=== PATIENT | male | born 1945 | race Caucasian/White ===

== ENCOUNTER → 2018-08-17 | Outpatient (CLI) | payer MEDICARE ==
[~2018-08-17] MED LIST: ASPI81CH PO; ATOR10; ATOR10 PO; CENTRUM SILVER1 EAC2 PO; LISHYD1012; LISI20 PO; Medi-Meclizine25 MG PO; PROM25 PO; VERTICALM25 MG PO
== END | disposition home or self-care (01) ==
LOC: PLD 14:29 → LAB SHORT 14:29
DX: D48.5 Neoplasm of uncertain behavior of skin (principal); L57.0 Actinic keratosis; L82.1 Other seborrheic keratosis
CPT/HCPCS: 88305

== ENCOUNTER → 2018-12-15 | Outpatient (CLI) | payer MEDICARE ==
[~2018-12-15] MED LIST changes: -ASPI81CH PO; +Aspirin EC81 MG PO; +BENZ100A PO; -LISI20 PO; +Prilosec Otc20 MG PO; +Prinivil10 MG PO
== END | disposition home or self-care (01) ==
LOC: LAB SHORT 11:49 → PLD 11:49
DX: D48.5 Neoplasm of uncertain behavior of skin (principal)
CPT/HCPCS: 88305

== ENCOUNTER → 2018-12-21 | Outpatient (CLI) | payer MEDICARE | LOC: PLD 14:55 → LAB SHORT 14:55 | DX: C44.629 Squamous cell carcinoma of skin of left upper limb, including shoulder (principal) | CPT/HCPCS: 88305 ==

== ENCOUNTER → 2019-08-24 | Outpatient (CLI) | payer MEDICARE | END | disposition home or self-care (01) | LOC: PLD 09:00 → LAB SHORT 09:00 | DX: C44.42 Squamous cell carcinoma of skin of scalp and neck (principal) | CPT/HCPCS: 88305 ==

== ENCOUNTER → 2019-11-29 | Outpatient (CLI) | payer MEDICARE | END | disposition home or self-care (01) | LOC: PLD 13:30 → LAB SHORT 13:30 | DX: D48.5 Neoplasm of uncertain behavior of skin (principal) | CPT/HCPCS: 88305 ==

== ENCOUNTER → 2020-03-02 | Outpatient (CLI) | payer MEDICARE | END | disposition home or self-care (01) | LOC: PLD 15:25 → LAB SHORT 15:25 | DX: D48.5 Neoplasm of uncertain behavior of skin (principal) | CPT/HCPCS: 88305 ==

== ENCOUNTER 2020-03-22 12:15 | Emergency (ER) | payer MEDICARE, OTHER ==
[~2020-03-22] VITALS: Ht 172.7 cm; Wt 69.0 kg
[~2020-03-22 12:15] MED LIST changes: -ATOR10 PO
[2020-03-22] MEDS ORDERED: TESTOSTERONE75 G1 TOP (12:45)
[2020-03-22] MEDS ORDERED: AUGMENTIN 875-1 EACH PO (12:45)
[2020-03-22] MEDS ORDERED: LISI20 PO (12:46)
[2020-03-22 12:55] LABS: BASOPHILS ABSOLUTE AUTO 0.03 K/mm3 (0.00-0.23); BASOPHILS PERCENT AUTO 0 % (0-2); EOSINOPHILS PERCENT AUTO 0 % (0-6); Hematocrit 29.7 % (37.0-53.0); Hemoglobin 9.9 g/dL (13.5-17.5); IMMATURE GRAN ABSOLUTE AUTO 0.09 K/mm3 (0.00-0.10); IMMATURE GRAN PERCENT AUTO 1 % (0-1); LYMPHOCYTES ABSOLUTE AUTO 1.51 K/mm3 (0.84-5.20); LYMPHOCYTES PERCENT AUTO 12 % (21-46); MONOCYTES ABSOLUTE AUTO 2.07 K/mm3 (0.16-1.47); MONOCYTES PERCENT AUTO 16 % (4-13); Mean Corpuscular HGB 29.6 pg (26.0-34.0); Mean Corpuscular HGB Conc 33.3 g/dL (31.5-36.5); Mean Corpuscular Volume 89 fL (80-100); Mean Platelet Volume 10.4 fL (9.1-12.4); NEUTROPHILS ABSOLUTE AUTO 9.02 K/mm3 (1.96-9.15); NEUTROPHILS PERCENT AUTO 71 % (41-73); Platelet Count 244 K/mm3 (150-400); RDW Coefficient Variation 14.6 % (11.7-14.2); RDW Standard Deviation 46.9 fL (35.1-46.3); Red Blood Cell Count 3.34 M/mm3 (4.30-5.90); White Blood Cell Count 12.72 K/mm3 (4.00-11.30)
[2020-03-22 13:14] LABS: Alanine Aminotransfer (ALT/SGP 83 U/L (12-78); Albumin, Blood 2.2 g/dL (3.4-5.0); Albumin/Globulin Ratio 0.5 (0.8-1.8); Alk Phos 213 U/L (50-136); Anion Gap 11 mmol/L (6-16); Aspartate Aminotrans (AST/SGOT 148 U/L (12-37); Bilirubin, Total 1.3 mg/dL (0.1-1.0); Blood Urea Nitrogen 33 mg/dL (8-24); Bun/Creatinine Ratio 26.2 (12.0-20.0); CO2, Blood 18 mmol/L (21-32); Calcium, Blood 8.3 mg/dL (8.5-10.1); Chloride, Blood 101 mmol/L (98-108); Creatinine, Blood 1.26 mg/dL (0.60-1.20); Globulin, Blood 4.7 g/dL (2.2-4.0); Glomerular Filtration Rate 59 (60-); Glucose, Blood 103 mg/dL (70-99); Potassium, Blood 4.7 mmol/L (3.5-5.5); Sodium, Blood 130 mmol/L (136-145); Total Protein, Blood 6.9 g/dL (6.4-8.2); Troponin I <0.015 ng/mL (0.000-0.040)
[2020-03-22] MEDS ORDERED: Ativan1 MG PO (14:38)
== END 2020-03-22 14:58 | disposition home or self-care (01) ==
LOC: ER 12:15
PROVIDERS: Physician Assistant
DX: F41.9 Anxiety disorder, unspecified (principal); D64.9 Anemia, unspecified; Z79.82 Long term (current) use of aspirin; Z79.899 Other long term (current) drug therapy; Z87.891 Personal history of nicotine dependence
CPT/HCPCS: 36415; 71046; 80053; 83880; 84484; 85025; 93005; 93010; 99285-25

== ENCOUNTER 2020-03-26 14:34 | Inpatient (IN) | payer MEDICARE, OTHER ==
[~2020-03-26] VITALS: Ht 172.7 cm; Wt 74.5 kg
[~2020-03-26 14:34] MED LIST changes: +AUGMENTIN 875-1 EACH PO; +Ativan1 MG PO; +LISI20 PO; +TESTOSTERONE75 G1 TOP
[2020-03-26 15:07] LABS: BASOPHILS ABSOLUTE AUTO 0.06 K/mm3 (0.00-0.23); BASOPHILS PERCENT AUTO 0 % (0-2); EOSINOPHILS PERCENT AUTO 0 % (0-6); Hematocrit 37.4 % (37.0-53.0); Hemoglobin 12.8 g/dL (13.5-17.5); IMMATURE GRAN ABSOLUTE AUTO 0.37 K/mm3 (0.00-0.10); IMMATURE GRAN PERCENT AUTO 2 % (0-1); LYMPHOCYTES ABSOLUTE AUTO 1.22 K/mm3 (0.84-5.20); LYMPHOCYTES PERCENT AUTO 5 % (21-46); MONOCYTES ABSOLUTE AUTO 2.23 K/mm3 (0.16-1.47); MONOCYTES PERCENT AUTO 9 % (4-13); Mean Corpuscular HGB 29.6 pg (26.0-34.0); Mean Corpuscular HGB Conc 34.2 g/dL (31.5-36.5); Mean Corpuscular Volume 87 fL (80-100); Mean Platelet Volume 11.5 fL (9.1-12.4); NEUTROPHILS ABSOLUTE AUTO 21.05 K/mm3 (1.96-9.15); NEUTROPHILS PERCENT AUTO 85 % (41-73); NRBC ABSOLUTE 0.27 K/mm3 (0.00-0.02); NRBC Auto 1.1 /100 WBC (0.0-0.2); Platelet Count 390 K/mm3 (150-400); RDW Coefficient Variation 15.6 % (11.7-14.2); RDW Standard Deviation 47.5 fL (35.1-46.3); Red Blood Cell Count 4.32 M/mm3 (4.30-5.90); White Blood Cell Count 24.93 K/mm3 (4.00-11.30)
[2020-03-26 15:20] LABS: Magnesium, Blood 3.7 mg/dL (1.6-2.4)
[2020-03-26 15:22] LABS: Albumin/Globulin Ratio 0.4 (0.8-1.8); Bilirubin, Total 2.8 mg/dL (0.1-1.0); Bun/Creatinine Ratio 21.4 (12.0-20.0); Calcium, Blood 8.8 mg/dL (8.5-10.1); Creatinine, Blood 4.58 mg/dL (0.60-1.20); Globulin, Blood 4.8 g/dL (2.2-4.0); Potassium, Blood 5.5 mmol/L (3.5-5.5); Total Protein, Blood 6.8 g/dL (6.4-8.2)
[2020-03-26] MEDS ORDERED: Ativan1 MG PO (15:33)
[2020-03-26] MEDS ORDERED: ATOR10 PO (15:34)
[2020-03-26 16:44] LABS: Source, Urine Clean Catch
[2020-03-26 16:58] LABS: Appearance, Urine Hazy (Clear); Blood, Urine 3+ (Neg); Color, Urine Amber (P-Yellow); Glucose Qualitative, Urine 1+ (Neg); Ketones, Urine 1+ (Neg); Leukocyte Esterase, Urine 1+ (Neg); Nitrite, Urine Pos (Neg); Protein, Urine 3+ (Neg); Specific Gravity, Urine 1.025 (1.003-1.022); Urobilinogen, Urine 3+ (Normal)
[2020-03-26 17:14] LABS: Bilirubin, Urine 2+ (Neg)
[2020-03-26 17:15] LABS: Bacteria Few /hpf; Squamous Epithelial Cells Rare /hpf (Few); White Blood Cells, Urine 0-2 /hpf (0-5)
--- NOTE | 2020-03-26 18:42 | NUR ---
ADMIT PT ARRIVED TO ICU 10 AT 1825. PT ALERT BUT DROWSY, SPEECH IS SLURRED AND QUIET. PT ANSWERING QUESTIONS APPROPRIATELY. ST IN THE 120S. LEVOPHED INFUSING AT 5MCG/MIN, SBP 120S, LEVOPHED TURNED DOWN TO 3 AND THEN DOWN TO 1 AFTER REPEAT SBP STILL ABOVE 100. AL WITH DARK YELLOW URINE, ONLY ABOUT 30ML IN THE BAG. PT'S AT THE BEDSIDE. CONTINUING TO MONITOR.
[2020-03-26] MEDS ORDERED: ALBU90OI INH (19:40)
[2020-03-26 21:34] LABS: U Amphetamine Screen Not Detected; U Barbituate Screen Not Detected; U Benzodiazapine Screen DETECTED; U Buprenorphine Screen Not Detected; U Cannabinoids Screen DETECTED; U Cocaine Screen Not Detected; U Methadone Screen Not Detected; U Methamphetamine Screen Not Detected; U Opiates Screen Not Detected; U Oxycodone Screen Not Detected; U Phencyclidine Screen Not Detected; U Propoxyphene Screen Not Detected
[2020-03-27 03:46] LABS: BASOPHILS ABSOLUTE AUTO 0.02 K/mm3 (0.00-0.23); BASOPHILS PERCENT AUTO 0 % (0-2); EOSINOPHILS PERCENT AUTO 0 % (0-6); Hematocrit 22.9 % (37.0-53.0); Hemoglobin 7.7 g/dL (13.5-17.5); IMMATURE GRAN ABSOLUTE AUTO 0.28 K/mm3 (0.00-0.10); IMMATURE GRAN PERCENT AUTO 2 % (0-1); LYMPHOCYTES ABSOLUTE AUTO 0.83 K/mm3 (0.84-5.20); LYMPHOCYTES PERCENT AUTO 5 % (21-46); MONOCYTES PERCENT AUTO 8 % (4-13); Mean Corpuscular HGB 29.8 pg (26.0-34.0); Mean Corpuscular HGB Conc 33.6 g/dL (31.5-36.5); Mean Corpuscular Volume 89 fL (80-100); NEUTROPHILS ABSOLUTE AUTO 14.31 K/mm3 (1.96-9.15); NEUTROPHILS PERCENT AUTO 85 % (41-73); NRBC ABSOLUTE 0.35 K/mm3 (0.00-0.02); NRBC Auto 2.1 /100 WBC (0.0-0.2); Platelet Count 246 K/mm3 (150-400); RDW Coefficient Variation 15.9 % (11.7-14.2); RDW Standard Deviation 49.7 fL (35.1-46.3); Red Blood Cell Count 2.58 M/mm3 (4.30-5.90); White Blood Cell Count 16.74 K/mm3 (4.00-11.30)
[2020-03-27 04:07] LABS: Alanine Aminotransfer (ALT/SGP 40 U/L (12-78); Albumin, Blood 2.4 g/dL (3.4-5.0); Albumin/Globulin Ratio 0.9 (0.8-1.8); Alk Phos 132 U/L (50-136); Anion Gap 14 mmol/L (6-16); Aspartate Aminotrans (AST/SGOT 136 U/L (12-37); Bilirubin, Direct 2.3 mg/dL (0.0-0.3); Bilirubin, Indirect 0.4 mg/dL (0.1-0.7); Bilirubin, Total 2.7 mg/dL (0.1-1.0); Blood Urea Nitrogen 93 mg/dL (8-24); Bun/Creatinine Ratio 24.6 (12.0-20.0); CO2, Blood 15 mmol/L (21-32); Calcium, Blood 6.9 mg/dL (8.5-10.1); Chloride, Blood 110 mmol/L (98-108); Creatinine, Blood 3.78 mg/dL (0.60-1.20); Globulin, Blood 2.7 g/dL (2.2-4.0); Glomerular Filtration Rate 17 (60-); Glucose, Blood 90 mg/dL (70-99); Phosphorus, Blood 6.2 mg/dL (2.5-4.9); Potassium, Blood 4.5 mmol/L (3.5-5.5); Sodium, Blood 139 mmol/L (136-145); Total Protein, Blood 5.1 g/dL (6.4-8.2); Vancomycin, Random 9.4 ug/mL
--- NOTE | 2020-03-27 04:54 | NUR ---
SHIFT SUMMARY AROUND 02:00 THIS AM PT. BECAME PROGRESSIVELY MORE CONFUSED, ALMOST DELIOUS. PT. WOULD BE PULLING AT AL CATHETER, PICKING AT IVs WITH HIS EYES CLOSED, SAID "HALINA," HE WOULD OPEN EYES, ASK "WHAT'S GOING ON?" AND WOULD HAVE NO IDEA HE WAS JUST PULLING ON LINES. AT 02:45 THIS AM PLACED ON RESTRAITNS SO PT. WOULD NOT HARM SELF, PT. OK WITH THIS DECISION. BP HAS MAINTAINED WITH A MEAN BP GREATER THAN 60 THROUGH NIGHT, HAVE NOT RESTARTED LEVOPHED AFTER TURNING OFF @ 23:30 LAST NIGHT. OTHER THAN SOME CONFUSION/DISORIENTATION DURING SLEEP, NO ACUTE CHANGES OVERNIGHT. ASSESSMENT IS CHARTED. NO C/O PAIN. VSS. WILL CONTINUE TO MONITOR.
--- NOTE | 2020-03-27 12:16 | NUR ---
UPDATE PT SLEEPING, WOKEN FOR REASSESSMENT, DENIES C/O. SPO2 >90% ON 1L/NC, WILL TITRATE OFF ABLE. MAP 67, LEVO REMAINS OFF. HR 90'S, HAS BECOME IRREGULAR, IS NOW CLEAR AFLUTTER. PT DENIES CP AND SOB.
[2020-03-27 16:23] LABS: Hematocrit 25.6 % (37.0-53.0); Hemoglobin 8.4 g/dL (13.5-17.5)
--- NOTE | 2020-03-27 18:53 | NUR ---
END OF SHIFT PT HAD UNEVENTFUL AFTERNOON, SLEPT MOST OF THE DAY BUT WAKES EASILY, REMAINS CONFUSED BUT COOPERATIVE. IN TO VISIT FOR MAJORITY OF AFTERNOON, ATTEMPTED TO ASSIST PT TO EAT BUT APPETITE IS POOR, PT DENIES NAUSEA OR ABD PAIN. BP LOW, MAP >60, HR 90-110 AFLUTTER, PT DENIES CP/PRESSURE. O2 REMAINS AT 3L/NC FOR DESAT WHILE SLEEPING, LS CTA. NO BM THIS SHIFT. JAUNDICE NOTED IN BILATERAL EYES THIS EVENING. NON PRODUCTIVE COUGH HAS BEGAN PRODUCING SMALL AMOUNTS OF WHITE PHLEGM. REPORT TO ONCOMING SHIFT.
[2020-03-28 01:05] LABS: Creatinine, Blood 3.17 mg/dL (0.60-1.20); Vancomycin, Trough 14.5 ug/mL (5.0-10.0)
--- NOTE | 2020-03-28 06:13 | NUR ---
SHIFT SUMMARY: PATIENT RESTLESS, TURNING HIMSELF SIDE TO SIDE IN THE BED MOST OF THE NIGHT. PATIENT ORIENTED, STATES HE JUST HAS TROUBLE SLEEPING SOMETIMES. OXYGEN AT 4L/MIN VIA NASAL CANNULA WITH SATS >95%; PORTABLE CXR DONE THIS AM. IV WITH LR INFUSING AT 200CC/HR VIA PIV TO LEFT ARM. PATIENT REMAINS OFF LEVOPHED WITH MAP >60. AL CATH. PATENT DRAINING ADEQUATE AMOUNTS CLEAR, YELLOW URINE. CONTINUE CURRENT POC. AWAITING DAY SHIFT RN FOR HANDOFF.
[2020-03-28 06:17] LABS: Hematocrit 26.2 % (37.0-53.0); Hemoglobin 8.6 g/dL (13.5-17.5); Mean Corpuscular HGB 30.2 pg (26.0-34.0); Mean Corpuscular HGB Conc 32.8 g/dL (31.5-36.5); Mean Corpuscular Volume 92 fL (80-100); Mean Platelet Volume 11.7 fL (9.1-12.4); NRBC ABSOLUTE 1.47 K/mm3 (0.00-0.02); NRBC Auto 10.2 /100 WBC (0.0-0.2); Platelet Count 139 K/mm3 (150-400); RDW Coefficient Variation 17.2 % (11.7-14.2); RDW Standard Deviation 53.6 fL (35.1-46.3); Red Blood Cell Count 2.85 M/mm3 (4.30-5.90); White Blood Cell Count 14.42 K/mm3 (4.00-11.30)
[2020-03-28 06:36] LABS: Albumin, Blood 2.1 g/dL (3.4-5.0); Anion Gap 11 mmol/L (6-16); Blood Urea Nitrogen 82 mg/dL (8-24); Bun/Creatinine Ratio 28.2 (12.0-20.0); CO2, Blood 15 mmol/L (21-32); Calcium, Blood 7.8 mg/dL (8.5-10.1); Chloride, Blood 116 mmol/L (98-108); Creatinine, Blood 2.91 mg/dL (0.60-1.20); Glomerular Filtration Rate 22 (60-); Glucose, Blood 66 mg/dL (70-99); Magnesium, Blood 2.9 mg/dL (1.6-2.4); Phosphorus, Blood 4.2 mg/dL (2.5-4.9); Potassium, Blood 4.4 mmol/L (3.5-5.5); Sodium, Blood 142 mmol/L (136-145)
[2020-03-28 06:56] LABS: BAND PERCENT MAN 1 % (0-8); BASOPHILS PERCENT MAN 0 % (0-2); EOSINOPHILS ABSOLUTE MAN 0.28 K/mm3 (0.00-0.68); EOSINOPHILS PERCENT MAN 2 % (0-6); LYMPHOCYTES ABSOLUTE MAN 0.86 K/mm3 (0.84-5.20); LYMPHOCYTES PERCENT MAN 6 % (21-46); MONOCYTES ABSOLUTE MAN 1.44 K/mm3 (0.16-1.47); MONOCYTES PERCENT MAN 10 % (4-13); MYELOCYTE ABSOLUTE MAN 0.14 K/mm3 (0.00-0.00); MYELOCYTE PERCENT MAN 1 % (0-0); NEUTROPHILS ABSOLUTE MAN 11.68 K/mm3 (1.96-9.15); SEG NEUTROPHILS PERCENT MAN 80 % (41-73); TOTAL CELLS COUNTED 100
--- NOTE | 2020-03-28 11:56 | NUR ---
REASSESSMENT PT HAS BEEN RESTING IN BED THROUGHOUT THE MORNING. HE IS ALERT AND ORIENTED, BUT SLEEPS UNLESS HE IS BEING INTERACTED WITH. HE IS WEAK, BUT STILL ABLE TO TURN HIMSELF FROM SIDE TO SIDE AND REPOSITIONS HIMSELF. LUNGS ARE CLEAR, BUT DIM IN THE BASES. HE HAS STARTED COUGHING MORE THIS MORNING AND IS STARTING TO PRODUCE A SMALL AMT OF PHLEGM, BUT HAS JUST SWALLOWED THE PHLEGM. PROVIDED PT WITH SPECIMEN CUP IF HE PRODUCES MORE. REMAINS IN AFLUTTER WITH RATE RIGHT AROUND 120, SBP STAYING ABOUT 140. PT TRIED TO DRINK SOME FLUIDS AT BREAKFAST, BUT DIDN'T LIKE THEM AND DOESN'T WANT TO TRY ANYTHING FOR LUNCH. IV FLUIDS STILL INFUSING BUT RATE REDUCED BY DR. SEGOVIA. AL DRAINING YELLOW URINE WITH SEDIMENT IN IT. DR. SEGOVIA GAVE OK FOR PT TO BE PCU STATUS. PT'S IS AT THE BEDSIDE AND WAS UPDATED BY DR. SEGOVIA AND NURSING STAFF.
[2020-03-28 16:36] LABS: International Normalized Ratio 1.39; Prothrombin Time Results 14.6 Sec (9.7-11.5)
--- NOTE | 2020-03-28 17:33 | NUR ---
SHIFT SUMMARY PT HAS REMAINED ALERT AND ORIENTED TODAY. SPENT THE DAY RESTING IN BED WITH HIS AT THE BEDSIDE FOR THE MAJORITY OF THE DAY. REMAINS IN AFLUTTER WITH RATE IN THE 120S, BP STABLE. LUNGS CLEAR, DIM IN THE BASES. ON 2L/NC, DYSPNEIC WITH ACTIVITY. PT TOLERATING MINIMAL AMTS OF CLEAR LIQUIDS DUE TO POOR APPETITE. AL WITH DARK YELLOW URINE WITH LOTS OF SEDIMENT. OVER 1L OUT TODAY. STILL WAITING ON PCU BED TO BE AVAILABLE. CONTINUE TO MONITOR.
--- NOTE | 2020-03-28 19:13 | NUR ---
ASSUMED CARE: A&O. FEBRILE WITH TEMP 99.4. IN A FLUTTER. HR 120S. LUNG SOUNDS CLEAR. DOES HAVE A WHEEZY PRODUCTIVE COUGH. ON 2-3L NC. CLEAR LIQUID DIET BUT HAS A POOR APPETITE. AL IN PLACE DRAINING DARK URINE WITH SEDIMENT. 18G IVS IN BILAT ACS. LR INFUSING AT 100MLS/HR. MEPILEX ON COCCYX. HGB SLIGHTLY LOW. ORDERS ARE IN TO COLLECT OCCULT STOOL. WAS AT BEDSIDE DURING SHIFT CHANGE. WILL CONTINUE TO MONITOR
[2020-03-29 00:48] LABS: Vancomycin, Trough 15.5 ug/mL (5.0-10.0)
--- NOTE | 2020-03-29 05:14 | NUR ---
SHIFT SUMMARY: PT SLEPT ON AND OFF T/O NIGHT. MILDLY CONFUSED. FEBRILE-99.1. IN A FLUTTER. HR IN THE 110S, SBP 100-120S. LUNG SOUNDS MORE CLEAR. SPO2 >90% ON 2-3LNC. PT DID FREQUENTLY TAKE NC OFF. SATS NEVER DROPPED BELOW 90%. SOME EPISODES OF APNEA T/O NIGHT. PT'S BREATHING APPEARS LABORED AND HE EASILY GETS SOB. STRONG PRODUCTIVE COUGH. IS ABLE TO CLEAR OWN SECRETIONS. AL IN PLACE. URINE IS DARK AND HAS MOD AMT OF SEDIMENT. PT HAD A COUPLE BM SMEARS TH/O NIGHT. NO FULL BMS. 18G IN LAC. LR AT 100MLS/HR. MEPILEX ON COCCYX IS C/D/I. PT IS ABLE TO REPOSITION SELF IN BED. WILL PASS REPORT TO ONCOMING SHIFT
[2020-03-29 06:24] LABS: Hematocrit 25.1 % (37.0-53.0); Hemoglobin 8.3 g/dL (13.5-17.5); Mean Corpuscular HGB Conc 33.1 g/dL (31.5-36.5); Mean Corpuscular Volume 91 fL (80-100); Mean Platelet Volume 12.5 fL (9.1-12.4); NRBC Auto 24.4 /100 WBC (0.0-0.2); Platelet Count 106 K/mm3 (150-400); RDW Coefficient Variation 17.9 % (11.7-14.2); RDW Standard Deviation 51.6 fL (35.1-46.3); Red Blood Cell Count 2.77 M/mm3 (4.30-5.90); White Blood Cell Count 14.73 K/mm3 (4.00-11.30)
[2020-03-29 06:35] LABS: Alanine Aminotransfer (ALT/SGP 52 U/L (12-78); Albumin/Globulin Ratio 0.7 (0.8-1.8); Alk Phos 320 U/L (50-136); Anion Gap 10 mmol/L (6-16); Aspartate Aminotrans (AST/SGOT 195 U/L (12-37); Bilirubin, Total 9.2 mg/dL (0.1-1.0); Blood Urea Nitrogen 70 mg/dL (8-24); Bun/Creatinine Ratio 30.3 (12.0-20.0); CO2, Blood 17 mmol/L (21-32); Calcium, Blood 8.7 mg/dL (8.5-10.1); Chloride, Blood 114 mmol/L (98-108); Creatinine, Blood 2.31 mg/dL (0.60-1.20); Globulin, Blood 2.9 g/dL (2.2-4.0); Glomerular Filtration Rate 29 (60-); Glucose, Blood 72 mg/dL (70-99); Magnesium, Blood 2.7 mg/dL (1.6-2.4); Phosphorus, Blood 3.9 mg/dL (2.5-4.9); Potassium, Blood 4.4 mmol/L (3.5-5.5); Sodium, Blood 141 mmol/L (136-145); Total Protein, Blood 4.9 g/dL (6.4-8.2)
[2020-03-29 07:05] LABS: International Normalized Ratio 1.65; Prothrombin Time Results 17.2 Sec (9.7-11.5)
--- NOTE | 2020-03-29 07:26 | NUR ---
PT VERY RESTLESS IN BED THIS AM, SOMEWHAT DISHEVELED, LEADS OFF, SHEETS TANGLED. PT RESP 30'S W DRY NON-PRODUCTIVE HACKING COUGH. LUNGS CLEAR, SATS 95% ON 2L O2. PT SHIVERING. TEMP 99 VIA TEMP AL PROBE. PT STATED HE NEEDED TO VOID; PT HAS CATHETER; PT FOREGETFUL BUT ORIENTED X3. URINE DARK CHEMO W SEDIMENT. PT IN AFLUTTER, HYPOTENSIVE W MAP>65.
[2020-03-29 07:37] LABS: BAND PERCENT MAN 2 % (0-8); BASOPHILS PERCENT MAN 0 % (0-2); EOSINOPHILS PERCENT MAN 0 % (0-6); LYMPHOCYTES ABSOLUTE MAN 1.17 K/mm3 (0.84-5.20); LYMPHOCYTES PERCENT MAN 8 % (21-46); METAMYELOCYTE ABSOLUTE MAN 0.14 K/mm3 (0.00-0.00); METAMYELOCYTE PERCENT MAN 1 % (0-0); MONOCYTES ABSOLUTE MAN 1.32 K/mm3 (0.16-1.47); MONOCYTES PERCENT MAN 9 % (4-13); MYELOCYTE ABSOLUTE MAN 0.44 K/mm3 (0.00-0.00); MYELOCYTE PERCENT MAN 3 % (0-0); NEUTROPHILS ABSOLUTE MAN 11.63 K/mm3 (1.96-9.15); SEG NEUTROPHILS PERCENT MAN 77 % (41-73); TOTAL CELLS COUNTED 100
--- NOTE | 2020-03-29 08:42 | NUR ---
DR MERIDA IN TO SEE PT; UPDATE GIVEN. OT AT BEDSIDE NOW
--- NOTE | 2020-03-29 09:20 | NUR ---
PT DANGLED ON SIDE OF BED W OT; PT SOB W RESP HIGH 30'S, LOW 40'S. BP ELEVATED. DR SEGOVIA AT BEDSIDE. PT ASSISTED BACK TO FOWLERS POSITION IN BED AND FELL ASLEEP ALMOST IMMEDIATELY. LOPRESSOR PO GIVEN; PT ABLE TO SWALLOW SAFELY. CPAP ORDERED FOR NIGHT AND PRN. PT DOES HAVE APNEIC PERIODS DURING SLEEP.
--- NOTE | 2020-03-29 10:06 | NUR ---
PT PLACED ON CPAP 20/10 W 2L BLEED-IN. PT SLEEPING SOUNDLY, DOES AWAKEN TO VOICE. PT ALREADY LOOKS IMPROVED FROM EARLIER. PT'S AT BEDSIDE AND GIVEN UPDATE.
--- NOTE | 2020-03-29 11:11 | NUR ---
LR CHANGED TO TKO, LASIX 20MG IVP GIVEN PER DR SEGOVIA. PT TOLERATING CPAP, RESP MUCH LESS LABORED. STOOL SAMPLE SENT FOR GUAIAC. RAMSAY TO BE PLACED FOR TF/NUTRITION.
[2020-03-29 13:35] LABS: Stool Occult Blood Guaiac 1 Neg (Neg)
--- NOTE | 2020-03-29 13:52 | NUR ---
DOBBHOFF PLACED TO RIGHT NARE (NUMBED W LIDO JELLY). TUBE PLACED W/O DIFFICULTY; AWAITING CHEST XRAY.
--- NOTE | 2020-03-29 14:16 | NUR ---
DOBBHOFF PLACEMENT GOOD PER DR FOSTER. WIRE REMOVED, LINE SECURED. PT TO BE TRANSFERED TO PCU 14.
--- NOTE | 2020-03-29 15:50 | NUR ---
ATTEMPTED TO CHANGE DAMARIS AT 1500 IT WAS SATURATED, AREA REMAINED SOFT W/O HEMATOMA. DAMARIS CAREFULLY PEELED UP, ARTERY STARTED BLEEDING OUTWARD. IMMEDIATE MANUAL PRESSURE HELD WHICH WAS EFFECTIVE IN STOPPING BLLED. DR ONEIL CALLED AND NOTIFIED. PRESSURE HELD FOR 45MIN. AREA REMAINS SOFT. CLEAR OCCLUSIVE DRSG PLACED ALONG W FEMSTOP; STRAPS TIGHTENED; BALLOON NOT INFLATED. PT HAS GOOD WAVEFORM; SAT MONITOR TO RIGHT TOE.
--- NOTE | 2020-03-29 18:30 | NUR ---
TRANSFER NOTE RECEIVED REPORT FROM RN IN ICU; PT TO ROOM VIA BED AT 1504; 4 PERSON TRANSFER ASSIST WITH SLIDER SHEET. PT AND SPOUSE ORIENTED TO ROOM AND CALL LIGHT. PT ALERT; ORIENTED TO PERSON, PLACE AND TIME; CALM AND COOPERATIVE WITH CARE. PT DENIES PAIN, SOB, CHEST PAIN AND DIZZINESS. PT SPOUSE REPORTS BLOATING AFTER STARTING TUBE FEEDING; STOPPED FEEDING; RESIDUAL NOTED AT 120; WILL HOLD FEEDING AND RESTART AFTER REST. BP ON LOW SIDE; MAP >60; HR ELEVARED A FLUTTER 120-130; DR MERIDA NOTIIFED; NO NEW ORDERS. HOB ELEVATED AT 30 DEGREE; BED IN LOW, CALL LIGHT WITHIN REACH. WILL CONTINUE TO MONITOR UNITL REPORT GIVEN TO ONCOMING RN.
--- NOTE | 2020-03-29 20:51 | NUR ---
CALLED RICHA ALVAREZ TO REPORT PATIENT PULLED DOBHOFF; CONFUSION IN INCREASING; ORDERS FOR SOFT WRIST RESTRAINTS.
--- NOTE | 2020-03-29 21:57 | NUR ---
ASSUMED CARE OF PATIENT AT APPROXIMATELY 1910 FROM KASI Webb RN. PATIENT RESPONDS TO VERBAL STIMULUS; BEDSIDE DURING BEDSIDE REPORT; REPORTS TO STAFF THAT PATIENT NOT NORMALLY CONFUSED BUT HAS BEEN SINCE HE HAS BEEN SICK. PATIENT WEAK; Q2H TURNS; BEDREST. PATIENT HAS DOBHOFF FOR TUBE FEEDING; PULLED OUT 1/2 WAY THROUGH SHIFT AND REPLACED BY PIPING SUPERVISOR DAN M.; XRAY PENDING; SOFT BILATERAL WRIST RESTAINTS IN PLACE. AFLUTTER ON TELE W/ A RATE IN 130'S; DAYSHIFT WAS NOTIFIED; BP SOFT; OXYGEN SATURATION ABOVE 90% ON ROOM AIR. PIV S/L. URINARY CATH DRAINING CHEMO COLORED URINE. PATIENT CURRENTLY RESTING IN BED; CALL LIGHT IN REACH; BED IN LOWEST POSISTION; BED ALARM ON; WILL CONTINUE TO MONITOR AND ASSESS UNTIL END OF SHIFT.
[2020-03-30 04:41] LABS: Alanine Aminotransfer (ALT/SGP 48 U/L (12-78); Albumin/Globulin Ratio 0.6 (0.8-1.8); Alk Phos 300 U/L (50-136); Anion Gap 16 mmol/L (6-16); Aspartate Aminotrans (AST/SGOT 209 U/L (12-37); Bilirubin, Total 12.5 mg/dL (0.1-1.0); Blood Urea Nitrogen 79 mg/dL (8-24); Bun/Creatinine Ratio 33.3 (12.0-20.0); CO2, Blood 13 mmol/L (21-32); Calcium, Blood 8.4 mg/dL (8.5-10.1); Chloride, Blood 113 mmol/L (98-108); Creatinine, Blood 2.37 mg/dL (0.60-1.20); Globulin, Blood 3.4 g/dL (2.2-4.0); Glomerular Filtration Rate 28 (60-); Glucose, Blood 80 mg/dL (70-99); Magnesium, Blood 2.6 mg/dL (1.6-2.4); Phosphorus, Blood 5.3 mg/dL (2.5-4.9); Potassium, Blood 5.1 mmol/L (3.5-5.5); Sodium, Blood 142 mmol/L (136-145); Total Protein, Blood 5.4 g/dL (6.4-8.2); Vancomycin, Random 18.4 ug/mL
--- NOTE | 2020-03-30 06:14 | NUR ---
PATIENT CONFUSED T/O THE NIGHT PULLING ON DOBHOFF MULTIPLE TIMES, PULLING ON CATHETER, PULLING GOWN DOWN AND TELE LEADS OFF. PATIENT REPORT IT IS NOT HIS INTENTION TO PULL THINGS. PATIENT SLEPT MAYBE FOUR HOURS TOTAL. HEART RATE TRENDED DOWN TO 110'S AT ONE POINT. CURRENTLY 120'S. WILL CONTINUE TO MONITOR AND ASSESS UNTIL END OF SHIFT.
[2020-03-30 06:21] LABS: Prothrombin Time Results 53.9 Sec (9.7-11.5)
[2020-03-30 06:24] LABS: International Normalized Ratio 5.55
[2020-03-30 06:45] LABS: Hematocrit 34.7 % (37.0-53.0); Hemoglobin 11.3 g/dL (13.5-17.5); Mean Corpuscular HGB Conc 32.6 g/dL (31.5-36.5); Mean Corpuscular Volume 92 fL (80-100); NRBC ABSOLUTE 6.53 K/mm3 (0.00-0.02); NRBC Auto 43.3 /100 WBC (0.0-0.2); Platelet Count 87 K/mm3 (150-400); RDW Coefficient Variation 20.9 % (11.7-14.2); RDW Standard Deviation 53.2 fL (35.1-46.3); Red Blood Cell Count 3.77 M/mm3 (4.30-5.90); White Blood Cell Count 15.07 K/mm3 (4.00-11.30)
[2020-03-30 06:51] LABS: Mean Platelet Volume 13.4 fL (9.1-12.4)
[2020-03-30 07:28] LABS: BAND PERCENT MAN 1 % (0-8); BASOPHILS PERCENT MAN 0 % (0-2); EOSINOPHILS PERCENT MAN 0 % (0-6); LYMPHOCYTES ABSOLUTE MAN 0.75 K/mm3 (0.84-5.20); LYMPHOCYTES PERCENT MAN 5 % (21-46); MONOCYTES ABSOLUTE MAN 1.65 K/mm3 (0.16-1.47); MONOCYTES PERCENT MAN 11 % (4-13); MYELOCYTE ABSOLUTE MAN 0.15 K/mm3 (0.00-0.00); MYELOCYTE PERCENT MAN 1 % (0-0); SEG NEUTROPHILS PERCENT MAN 82 % (41-73); TOTAL CELLS COUNTED 100
--- NOTE | 2020-03-30 10:03 | NUR ---
Assisted pt twice to bedpan for bowel movement.
--- NOTE | 2020-03-30 12:50 | NUR ---
Call to imaging department to request a read of the xray from last night 2100 to confirm dobhoff placement. Call received back, stating results. Dobhoff was flushed with 30 cc water at this time, no resistance felt. PT is awake and talking to me and to his , Megan, who is at the bedside. Tube feeding was resumed, per prior orders.
--- NOTE | 2020-03-30 14:10 | NUR ---
Oskar has been alert during care, and at times spontaneously awakening, but napping frequently so far this shift. He is oriented to person, able to state his birthday, and that he is in " a civilian hospital". He cannot specify where that he is, and told me that today's date is September 07 of the year 2022. I reminded him that his birthday was yesterday, but this didn't seem to jog his memory. He recognized his , and has been making requests regarding his care and comfort, and able to respond to simple directions, but at times struggles to follow more complex instructions. Very dyspneic with minimal activity, such as repositioning in the bed with maximum assistance, but requesting OOB to the bedside commode, which he would likely not tolerate at all. spO2 maintaining above 90% while on no supplemental oxgyen. Heart rate has mostly been 110-128, at times 90 bpm atrial fibrillation by telemetry monitoring. CPAP in use when he is sleeping. Poor appetite, taking only small amounts of clear liquids by mouth, but tube feeding was resumed early this afternoon after Chest xray was reported by the radiologist by phone to have correct dobhoff placement. His has been at the bedside for most of the day. Ontiveros catheter draining rehana clear urine. He has had one small loose brown bowel movement today, and was continent using the bedpan.
--- NOTE | 2020-03-30 18:53 | NUR ---
CPAP in use while pt sleeping today while his was here, present in room; during those times the wrist restraints were temporarily released while she was present to monitor and protect the pt from pulling his lines.
--- NOTE | 2020-03-30 22:00 | NUR ---
ASSUMED CARE OF PATIENT AT APPROXIMATELY [address] RN. PATIENT RESPONDS TO VERBAL STIMULUS; CONFUSED; PULLING AT DOBHOFF, AL AND GOWN; SOFT WRIST RESTAINTS IN PLACE. PATIENT WEAK; Q2H TURNS; BEDREST. NO S/S OF PAIN. PATIENT HAS DOBHOFF FOR TUBE FEEDING; PATIENT REPORTS STOMACH FEELS FUL AND BLOATED; FEEDING HELD FOR ONE HOUR; UNABLE TO TITRATE UP TO GOAL. AFLUTTER ON TELE W/ A RATE IN 110'S; OXYGEN SATURATION ABOVE 90% ON ROOM AIR. PIV S/L. URINARY CATH DRAINING CHEMO COLORED URINE. PATIENT CURRENTLY RESTING IN BED; CALL LIGHT IN REACH; BED IN LOWEST POSISTION; BED ALARM ON; WILL CONTINUE TO MONITOR AND ASSESS UNTIL END OF SHIFT.
--- NOTE | 2020-03-30 22:20 | NUR ---
ASSUMED CARE OF PATIENT AT APPROXIMATELY [address] RN. PATIENT RESPONDS TO VERBAL STIMULUS; CONFUSED; PULLING AT DOBHOFF, AL AND GOWN; SOFT WRIST RESTAINTS IN PLACE. PATIENT WEAK; Q2H TURNS; BEDREST. NO S/S OF PAIN. PATIENT HAS DOBHOFF FOR TUBE FEEDING; HIGH RESIDUAL; FEEDING HELD FOR ONE HOUR; UNABLE TO TITRATE UP TO GOAL. AFLUTTER ON TELE W/ A RATE IN 110'S; OXYGEN SATURATION ABOVE 90% ON ROOM AIR. PIV S/L. URINARY CATH DRAINING CHEMO COLORED URINE. PATIENT CURRENTLY RESTING IN BED; CALL LIGHT IN REACH; BED IN LOWEST POSISTION; BED ALARM ON; WILL CONTINUE TO MONITOR AND ASSESS UNTIL END OF SHIFT.
--- NOTE | 2020-03-31 04:12 | NUR ---
PATIENT SPIT OUT BLOODY SPUTUM; VSS; HAND ENDBAND CUTTER NOTIFIED.
[2020-03-31 04:43] LABS: Magnesium, Blood 2.9 mg/dL (1.6-2.4); Phosphorus, Blood 4.7 mg/dL (2.5-4.9); Vancomycin, Random 22.1 ug/mL
[2020-03-31 04:45] LABS: International Normalized Ratio No Calc; Prothrombin Time Results >90.0 Sec (9.7-11.5)
--- NOTE | 2020-03-31 05:01 | NUR ---
CRITICALLY HIGH PT ABOVE 90 AND INR NO CALC; DR. DUMONT NOTIFIED OF LAB RESULTS AND QUARTER SIZE BLOODY SPUTUM ABOUT AN HOUR BEFORE LABS; WILL CONTINUE TO MONITOR; WARFARIN BEING HELD.
--- NOTE | 2020-03-31 06:11 | NUR ---
PATIENT COUGHED UP MORE BLOODYS SPUTUM. PATIENT SLEPT MOST OF SHIFT. HEART RATE 110-120'S; BLOOD PRESSURE IMPROVED. TUBE FEEDING CONTINUES. PATIENT TAKES CPAP MASK OF MULTPLE TIMES; DOESNT TOLERATE; APNEIC WHEN SLEEPING. WILL CONTINUE TO MONITOR AND ASSESS UNTIL END OF SHIFT.
--- NOTE | 2020-03-31 10:02 | NUR ---
and pharmacist Wesly Carbajal here. UPdated on pt condition and Dr. Clifton's plan to test for Lyme's disease. It was suggested to check the PTT as well as liver function due to the incalculable INR.
--- NOTE | 2020-03-31 10:26 | NUR ---
Megan at bedside, tearful. States that the doctor thinks that "it doesn't look good". Declines support from palliative care/spiritual care at this time. States that family members will be coming to say their goodbyes to the pt. STates that he is a good man and has lived a good life. The pt has been sleeping when left undisturbed. He was able to take medications by mouth this morning, but has otherwise been uninterested in oral intake. His tube feeding is running via Dobhoff per orders and rate increased at this time from 25cc/hour to 35 cc/hour. He has not been communicative this morning, only occasionally attempting to speak when spoken to but it is difficult to understand. Occasional dry cough noted. Noted dried blood around his teeth and on tongue/palate. Oral care was not attempted as noc shift RN reported that the pt did not tolerate it well and it caused increased bleeding from the oral cavity. At this time there is no actie bleeding noted. His lips and around his mouth are being wipes gently with soft cloth as needed. He is lying on his right side, propped with pillows. ramos catheter draining rehana urine. No bowel movements this morning. Skin is slightly jaundices in color. Breathing is even, unlabored. He is not wearing the CPAP at this time. It was placed on the pt at time of bedside report at 0700, but at 0830 the pt's Megan requested that he be given a break from it as it seemed to be making him very uncomfortable, and he was attempting to pull it off. At this time, he is not pulling at any lines/tubes/wires. Megan was encouraged to keep staff informed of any needs or concers that she might have.
[2020-03-31 11:12] LABS: Albumin, Blood 1.9 g/dL (3.4-5.0); Albumin/Globulin Ratio 0.6 (0.8-1.8); Bilirubin, Indirect 2.6 mg/dL (0.1-0.7); Bilirubin, Total 14.6 mg/dL (0.1-1.0); Globulin, Blood 3.1 g/dL (2.2-4.0)
--- NOTE | 2020-03-31 11:40 | NUR ---
Met with Megan and Oskar this morning. Oskar slept through most of the visit, however he did awaken a little and speak a few words to Megan. He is pulling at tubes and lines and wants his gown removed and to be repositioned. Assisted bedside nurse with repositioning to his left side, which is the side he prefers to sleep on at home per Megan. Emotional support given to Megan. She is tearful and is able to tell this instructional writer that the doctors have given him a poor prognosis. She states Oskar has sisters, one who lives in [place] is planning to come tomorrow. Megan states "I don't know how much time he has left." Allowed her to talk about what the doctors have told her. Offered to call someone for her as a support person. She reports that her mother was here earlier today and will plan to return later. She declines any drinks or a snack at this time. She reports that she was able to get some sleep last night. She reports that the jaundice that Oskar has is new in the past couple of days. He is more sleepy and appears to be confused at times. Gently broached the subject of code status with her as something to think about. She reports that she and Oskar have had discussions on code status in the past but they never talked about how sick he needed to be to draw the line to consider a DNR status. Informed her that there are some good resource booklets on making hard decisions should she desire that information. Briefly discussed the support care he is being given at this time vs a comfort care approach. Again, did not push the issue as Megan is tearful and distraught over his illness. Will plan to check in with Megan this afternoon to see how she is doing and if she has any questions. Encouraged self care. Emotional support given. PC will continue to follow.
--- NOTE | 2020-03-31 12:06 | NUR ---
alerted by the PCT that the pt's spo2 was dropping, and continuous oxymetry monitor alarming. In room noted that spo2 was 87%. CPAP placed on pt, with 3 l/min o2 bleed in , and spo2 improved to 91%. The pt is lying on his left side, with his at the bedside. She is tearful, and asked her own mother to leave the room; states she just wants to be alone right now.
--- NOTE | 2020-03-31 12:46 | NUR ---
Pt's heart rate is increasing, now in the 120-130s. Spo2 93% on room air. requested that cpap stay off since it is uncomfortable for the patient, and he is attempting to remove it, and since the "goal is to keep him comfortable" she would prefer to keep it off. Noted now some active bleeding from the pt's mouth. Family members are at the bedside, and states that they are here to "say good bye" to Oskar. Her understanding is that "we don't know how much time he has left". Call to Dr. Clifton to update on pt's condition. New order received for Vit K as well as FFP at this time. Metoprolol was held at noon due to pt's blood pressure being outside or presribed parameters for administration. Respiratory rate also noted increased, up to 32 breaths/minute.
[2020-03-31 13:22] LABS: Hematocrit 32.9 % (37.0-53.0); Hemoglobin 10.7 g/dL (13.5-17.5)
--- NOTE | 2020-03-31 13:53 | NUR ---
Dr. Clifton and Geena Bryd with Palliative care here, discussing pt's condition and ongoing treatment plan. Oral care was given at the time of oral vitamin K adminsitration. PT spat out large blood clot which was under his tongue. Attempted to do some very gentle oral care, but minimally successful due to pt's discomfort and refusal to continue. Megan at the bedside. Waiting for FFP slip to administer.
--- NOTE | 2020-03-31 14:22 | NUR ---
Met with pt's , Megan, again per request of nursing. Spoke with both nursing and Dr. Clifton prior to entering pt's room. Pt has had some bleeding from his mouth and he had elevated HR and lower BP since the last time I visited with Megan earlier today. An US of the abd was just completed and labs drawn. Megan and her mother are present at the bedside. Oskar remains restless at times, pulling covers off and on. Family reports he appears to be having some visual hallucinations trying to grab at things in the air. His sister is planning to visit tomorrow. Nursing reports pt has had several family members coming in today "to say goodbye." Gently broached the code status discussion again with Megan. Explained that DNR does not mean that he won't get the treatments and testing that he is currently getting. Those treatments and tests could be continued to look for a cause if his DNR status changed. Explained that full code would be those same testing and treatments with the possibility of a return to ICU if he continues to worsen. Megan verbalized understanding and states that she needs to think about this decision overnight and that she cannot make it today. Megan reports pt's sister, Little, is coming tomorrow and she tells Oskar in my presence that he needs "To hang on and wait for Little to get here." Explained that staff will respect her wishes and continue with a full code status at this time. Provided a copy of [employer] to her. Nursing, Dr. Clifton and Isabella in CM updated. PC will plan to visit with Megan and Oskar again tomorrow morning or sooner if needed.
--- NOTE | 2020-03-31 14:47 | NUR ---
remains at bedside. Noted very small amount of dark red blood drooling from pt's mouth, mostly dried on the right side. Not sure if there is an active small bleed, or if his saliva is moistening the dried blood present in his mouth. He is lying on his right side, respirations are regular, slightly labored at times. He awakens easily to stimuli.
--- NOTE | 2020-03-31 17:53 | NUR ---
This afternoon, blood pressure improved and heart rate has remained less than 130. He has been less responsive and much less interactive than he was yesterday. Shifting his position often and spontaneously in the bed. Able to do oral care 3 times, but only very gently and not thoroughly due to the pt's discomfort and wanting to avoid preciptating any bleeding of his mouth. Appears to be tolerating the tube feeding, passing gas and one very small smear of stool this afternoon. His Megan has remained at the bedside and will continue to do so. She states that the pt's sister will be arriving tomorrow from [place], [place].
--- NOTE | 2020-03-31 18:53 | NUR ---
2NS UNIT OF FFP COMPLETED. vITAL SIGNS STABLE, PT APPEARS TO BE SLEEPING, WITHOUT THE CPAP. AT BEDSIDE.
--- NOTE | 2020-03-31 21:57 | NUR ---
IN ROOM VERY ATTENTIVE TO PATIENT, CALMLY TALKING TO HIM AND COMFORTING. PATIENT WAKES WITH VERBAL STIMULI, ANDSWERS WITH ONE TO TWO WORD ANSWERS, FOLLOW SIMPLE COMMANDS. HE DENIES PAIN. HE IS BREATHING AT 32-36 BREATHS PER MINUTE, HE BREATHS RAPIDLY FOR 20-30SECONDS AND THE IS SNORING WITH SLOWER RESP, THIS IS CYCLICAL AND REGULAR. HIS LUNGS ARE DECREASED T/O WITH BRONCHIAL RHONCHI. F/C DRAINING DARK YELLOW URINE, PATIENT HAS BEEN PULLING AT THE CATHETER, ARRANGED THE SHEETS TO KEEP HIS HANDS AWAY FROM THE CATH. NO RESTRAINTS ARE USED. DOBHOFF WITH TF AT 35CC/HOUR. ABDOMEN WITH MODERATE DESTENTION WITH HYPOACTIVE BT. HAVING BROWN LIQUID STOOL. CALL LIGHT IN REACH OF PATIENT AND .
[2020-04-01 03:42] LABS: BASOPHILS ABSOLUTE AUTO 0.08 K/mm3 (0.00-0.23); BASOPHILS PERCENT AUTO 1 % (0-2); EOSINOPHILS ABSOLUTE AUTO 0.01 K/mm3 (0.00-0.68); EOSINOPHILS PERCENT AUTO 0 % (0-6); Hemoglobin 9.2 g/dL (13.5-17.5); Mean Corpuscular HGB 30.7 pg (26.0-34.0); Mean Corpuscular HGB Conc 32.9 g/dL (31.5-36.5); Mean Corpuscular Volume 93 fL (80-100); NRBC ABSOLUTE 12.22 K/mm3 (0.00-0.02); NRBC Auto 69.2 /100 WBC (0.0-0.2); Platelet Count 54 K/mm3 (150-400); RDW Standard Deviation 51.8 fL (35.1-46.3); White Blood Cell Count 17.67 K/mm3 (4.00-11.30)
[2020-04-01 03:47] LABS: IMMATURE GRAN ABSOLUTE AUTO 1.33 K/mm3 (0.00-0.10); IMMATURE GRAN PERCENT AUTO 8 % (0-1); LYMPHOCYTES ABSOLUTE AUTO 1.87 K/mm3 (0.84-5.20); LYMPHOCYTES PERCENT AUTO 11 % (21-46); MONOCYTES ABSOLUTE AUTO 2.38 K/mm3 (0.16-1.47); MONOCYTES PERCENT AUTO 14 % (4-13); NEUTROPHILS PERCENT AUTO 68 % (41-73)
[2020-04-01 03:53] LABS: International Normalized Ratio 3.08; Prothrombin Time Results 30.9 Sec (9.7-11.5)
[2020-04-01 04:02] LABS: Alanine Aminotransfer (ALT/SGP 89 U/L (12-78); Albumin, Blood 2.2 g/dL (3.4-5.0); Albumin/Globulin Ratio 0.7 (0.8-1.8); Alk Phos 213 U/L (50-136); Anion Gap 9 mmol/L (6-16); Aspartate Aminotrans (AST/SGOT 419 U/L (12-37); Blood Urea Nitrogen 101 mg/dL (8-24); Bun/Creatinine Ratio 49.8 (12.0-20.0); CO2, Blood 20 mmol/L (21-32); Chloride, Blood 118 mmol/L (98-108); Creatinine, Blood 2.03 mg/dL (0.60-1.20); Globulin, Blood 3.1 g/dL (2.2-4.0); Glomerular Filtration Rate 34 (60-); Glucose, Blood 145 mg/dL (70-99); Phosphorus, Blood 3.4 mg/dL (2.5-4.9); Potassium, Blood 4.3 mmol/L (3.5-5.5); Sodium, Blood 147 mmol/L (136-145); Total Protein, Blood 5.3 g/dL (6.4-8.2); Vancomycin, Random 17.3 ug/mL
[2020-04-01 04:05] LABS: BAND PERCENT MAN 5 % (0-8); BASOPHILS PERCENT MAN 0 % (0-2); EOSINOPHILS PERCENT MAN 0 % (0-6); LYMPHOCYTES ABSOLUTE MAN 1.41 K/mm3 (0.84-5.20); LYMPHOCYTES PERCENT MAN 8 % (21-46); METAMYELOCYTE ABSOLUTE MAN 0.88 K/mm3 (0.00-0.00); METAMYELOCYTE PERCENT MAN 5 % (0-0); MONOCYTES ABSOLUTE MAN 2.65 K/mm3 (0.16-1.47); MONOCYTES PERCENT MAN 15 % (4-13); MYELOCYTE ABSOLUTE MAN 0.17 K/mm3 (0.00-0.00); MYELOCYTE PERCENT MAN 1 % (0-0); NEUTROPHILS ABSOLUTE MAN 12.54 K/mm3 (1.96-9.15); SEG NEUTROPHILS PERCENT MAN 66 % (41-73); TOTAL CELLS COUNTED 100
--- NOTE | 2020-04-01 06:59 | NUR ---
PATIENT IS BREATHING MORE LABORED THAN AT THE BEGINNING OF THE SHIFT. DOES NOT WANT THE PATIENT ON BIPAP, SHE STATES THAT SHE DOESNT THINK IT MAKE HIM FEEL BETTER, BECAUSE HE FIGHTS IT. HE HAS BEEN REPOSITIONED EVERY 2 HOURS FOR COMFORT AND HIGH RISK. CALL LIGHT IN POSITION.
[2020-04-01 09:11] LABS: HBSAG SCREEN Negative (Negative); HEP A AB, IGM Negative (Negative); HEP B CORE AB, IGM Negative (Negative); HEP C VIRUS AB 0.1 (0.0-0.9)
--- NOTE | 2020-04-01 11:53 | NUR ---
Family requested oral care as the pt was "trying to spit out a blood clot". With use of flashlight, dried crusty blood seen on the palate, tongue, and all teeth. Oral care was provided, and a large clot was removed by suction with use of mouth care kit. Some slow, small active bleeding was noted in the mouth, so oral care was limited due to the pt's resistance to the care, presumably due to discomfort.
--- NOTE | 2020-04-01 17:02 | NUR ---
HR PT'S HR 144. DISCUSSED W/DR PINEDA AND DR HOWELL. ORDERS PENDING FROM DR HOWELL.
--- NOTE | 2020-04-01 18:41 | NUR ---
SUMMARY PT'S HR REMAINED TACHY AT 138-142 T/O SHIFT. ORDERS OBTAINED FROM DR HOWELL TO INCREASE METOPROLOL, WHICH WAS ADMINISTERED. PT HAD DIFFICULTY SWALLOWING PILLS, INSTEAD CRUSHED AND ADMINISTERED THROUGH DOBHOFF. HAS DRIED BLOOD IN MOUTH, GENTLE ORAL CARE WAS PERFORMED BY ROTARY DERRICK OPERATOR. PT RESTLESS AT TIMES. MOVES INDEPENDENTLY IN BED AND STAFF REPOSITIONED T/O DAY ALSO. SPOUSE AT BEDSIDE, SPOKE TO DR HOWELL ABOUT OUTLOOK. STATES WANTS TO AWAIT ARRIVAL OF PT'S CHILDREN FRIDAY MORNING BEFORE MAKING ANY DECISIONS ABOUT CHANGING CODE STATUS.
[2020-04-02 04:27] LABS: Hematocrit 28.9 % (37.0-53.0); Hemoglobin 9.2 g/dL (13.5-17.5); Mean Corpuscular HGB Conc 31.8 g/dL (31.5-36.5); Mean Corpuscular Volume 97 fL (80-100); NRBC ABSOLUTE 13.04 K/mm3 (0.00-0.02); NRBC Auto 73.7 /100 WBC (0.0-0.2); RDW Coefficient Variation 26.5 % (11.7-14.2); RDW Standard Deviation 58.3 fL (35.1-46.3); Red Blood Cell Count 2.97 M/mm3 (4.30-5.90); White Blood Cell Count 17.69 K/mm3 (4.00-11.30)
[2020-04-02 04:37] LABS: Platelet Count 38 K/mm3 (150-400)
[2020-04-02 04:40] LABS: International Normalized Ratio 2.92; Prothrombin Time Results 29.4 Sec (9.7-11.5)
[2020-04-02 04:57] LABS: Alanine Aminotransfer (ALT/SGP 68 U/L (12-78); Albumin/Globulin Ratio 0.6 (0.8-1.8); Alk Phos 202 U/L (50-136); Anion Gap 11 mmol/L (6-16); Aspartate Aminotrans (AST/SGOT 336 U/L (12-37); Bilirubin, Total 23.3 mg/dL (0.1-1.0); Blood Urea Nitrogen 93 mg/dL (8-24); Bun/Creatinine Ratio 58.1 (12.0-20.0); CO2, Blood 19 mmol/L (21-32); Calcium, Blood 7.9 mg/dL (8.5-10.1); Chloride, Blood 122 mmol/L (98-108); Globulin, Blood 3.1 g/dL (2.2-4.0); Glomerular Filtration Rate 45 (60-); Glucose, Blood 149 mg/dL (70-99); Potassium, Blood 4.4 mmol/L (3.5-5.5); Sodium, Blood 152 mmol/L (136-145); Total Protein, Blood 5.1 g/dL (6.4-8.2); Vancomycin, Random 17.1 ug/mL
[2020-04-02 05:26] LABS: BAND PERCENT MAN 4 % (0-8); BASOPHILS PERCENT MAN 0 % (0-2); EOSINOPHILS PERCENT MAN 0 % (0-6); LYMPHOCYTES ABSOLUTE MAN 1.23 K/mm3 (0.84-5.20); LYMPHOCYTES PERCENT MAN 7 % (21-46); METAMYELOCYTE ABSOLUTE MAN 0.88 K/mm3 (0.00-0.00); METAMYELOCYTE PERCENT MAN 5 % (0-0); MONOCYTES ABSOLUTE MAN 1.76 K/mm3 (0.16-1.47); MONOCYTES PERCENT MAN 10 % (4-13); NEUTROPHILS ABSOLUTE MAN 13.79 K/mm3 (1.96-9.15); SEG NEUTROPHILS PERCENT MAN 74 % (41-73); TOTAL CELLS COUNTED 100
--- NOTE | 2020-04-02 06:40 | NUR ---
SHIFT SUMMARY PT RESTLESS T/O NIGHT. PT'S HR REMAINED IN 130'S-140'S. METOPROLOL GIVEN ORDERED. PT REPOSITIONED Q 2 HRS AND NEEDED FOR COMFORT. AL DRAINING TO GRAVITY. PT CONFUSED AND LETHARGIC AT TIMES. PT REPORTS NO CP OR PRESSURE. BP STABLE. OXYGEN SATURATION OVER 90% ON RA. PT HAS CONTINUOUS TPN THROUGH DOBHOFF AT 40. WILL CONTINUE TO MONITOR UNTIL REPORT GIVEN TO DAYSHIFT RN.
--- NOTE | 2020-04-02 08:10 | NUR ---
Met with Megan in pt's room this morning. She reports that pt's children are flying in from [place] and [place] late tonight and will be coming to visit pt. She states she is going to defer the code status decision to his children. She is hopeful that his children can meet with MD tomorrow and get their questions answered before making a decision. Oskar remains very jaundiced at this time. He opened his eyes during my visit but did not verbally respond to my questions. PC will continue to follow and will plan to meet with Megan, Oskar and his children once they arrive. Emotional support given to Megan. She appears quite fatigued. She has been here caring for Oskar while he has been here. Encouraged self care.
[2020-04-02 08:46] LABS: Albumin/Globulin Ratio 0.6 (0.8-1.8); Bilirubin, Direct 19.4 mg/dL (0.0-0.3); Bilirubin, Indirect 3.6 mg/dL (0.1-0.7); Globulin, Blood 3.1 g/dL (2.2-4.0); Total Protein, Blood 5.1 g/dL (6.4-8.2)
--- NOTE | 2020-04-02 09:00 | NUR ---
ASSUMED CARE OF PT AT 0700. REPORT FROM TAMMIE/FLORENTINO LAWSON. PT RESTING IN BED. SO AT BEDSIDE. PT LAYING c EYES CLOSED. MOANS TO VERBAL STIMULI. FOLLOWS SIMPLE DIRECTIONS. DOES NOT ANSWER QUESTIONS. PT JAUNDICE, FRAGILE, ECCHYOTIC SKIN. ABD FIRM, ROUND, DISTENDED. HYPOACTIVE BT. DOBHOFF TO RIGHT NARE. PIVOT 1.5 INFUSING AT GOAL OF 40 ML/HR c 130 ML FLUSHES q4 HOURS. LUNGS DIMINISHED IN BASES. PT TACHYPENIC IRREGULAR RESP. HR 140'S. PT ABLE TO MOVE ALL EXTREMITIES. Q2 HOUR TURNS. AL PATENT AND DRAINING ORANGE CLOUDY URINE TO GRAVITY. DRIED BLOOD IN MOUTH. ORAL CARE PROVIDED. WILL CONTINUE TO MONITOR.
--- NOTE | 2020-04-02 18:34 | NUR ---
SHIFT SUMMARY PT CONTINUES TO BE RESPONSIVE TO VERBAL STIMULI, FOLLOW SIMPLE DIRECTIONS. MOANS. OCCASIONALLY ANSWERS YES/NO QUESTIONS. TACHYPNIC. HR REMAINS 130-140'S, AFLUTTER, NO CHANGE AFTER METOPROLOL DOSE. PIVOT 1.5 AT GOAL OF 40 ML/HR c FLUSHES INCREASED TO 240 ML q4. 1/2 NS STARTED AT 100 ML/HR. PT CONTINUES TO HAVE THICK BLOODY CLOTS TO MOUTH. ORAL CARE PROVIDED MULTIPLE TIMES. GI CONSULTED TODAY. LIVER U/S ORDERED AND LACTULOSE. PT c 2 SMALL LIQUID STOOLS. SENT TO LAB FOR GUIAC. PT'S ADULT CHILDREN WILL BE ARRIVING TONIGHT AND DISCUSSIONS REGARDING CODE STATUS TO BE HAD. WILL CONTINUE TO MONITOR UNTIL REPORT TO ONCOMING NURSE.
[2020-04-03 04:06] LABS: Hematocrit 27.2 % (37.0-53.0); Hemoglobin 8.7 g/dL (13.5-17.5); Mean Corpuscular HGB 31.5 pg (26.0-34.0); Mean Corpuscular Volume 99 fL (80-100); NRBC ABSOLUTE 16.31 K/mm3 (0.00-0.02); RDW Coefficient Variation 28.2 % (11.7-14.2); RDW Standard Deviation 56.4 fL (35.1-46.3); Red Blood Cell Count 2.76 M/mm3 (4.30-5.90); White Blood Cell Count 17.54 K/mm3 (4.00-11.30)
[2020-04-03 04:13] LABS: Platelet Count 33 K/mm3 (150-400)
[2020-04-03 04:26] LABS: International Normalized Ratio 5.96; Prothrombin Time Results 57.6 Sec (9.7-11.5)
--- NOTE | 2020-04-03 04:51 | NUR ---
CRITICAL LAB VALUES NOTFIED OF PLT COUNT AT 33, PROTIME AT 57.6 AND INR OF 5.9 AT 0425. PHYSICIAN NOTIFIED AT 0432. NO PHYSICIAN ORDERS WERE GIVEN PERTAINING TO THESE LAB RESULTS.
[2020-04-03 04:57] LABS: Alanine Aminotransfer (ALT/SGP 59 U/L (12-78); Albumin, Blood 1.8 g/dL (3.4-5.0); Albumin/Globulin Ratio 0.6 (0.8-1.8); Alk Phos 186 U/L (50-136); Anion Gap 12 mmol/L (6-16); Aspartate Aminotrans (AST/SGOT 292 U/L (12-37); Bilirubin, Total 25.9 mg/dL (0.1-1.0); Blood Urea Nitrogen 105 mg/dL (8-24); Bun/Creatinine Ratio 63.3 (12.0-20.0); CO2, Blood 16 mmol/L (21-32); Chloride, Blood 125 mmol/L (98-108); Creatinine, Blood 1.66 mg/dL (0.60-1.20); Globulin, Blood 3.1 g/dL (2.2-4.0); Glomerular Filtration Rate 43 (60-); Glucose, Blood 143 mg/dL (70-99); Potassium, Blood 4.4 mmol/L (3.5-5.5); Sodium, Blood 153 mmol/L (136-145); Total Protein, Blood 4.9 g/dL (6.4-8.2); Vancomycin, Random 19.2 ug/mL
--- NOTE | 2020-04-03 05:38 | NUR ---
SHIFT SUMMARY PT RESTLESS T/O SHIFT. PT LETHARGIC AND MOANS IN RESPONSE TO VERBAL STIMULI. PT'S AT BEDSIDE. PT'S HR REMAINS IN THE 130'S TO 140'S. MEDICATIONS GIVEN PER EMAR. PT'S BP STABLE. OXYGEN SATURATION REMAINED ABOVE 92% ON RA. DOBHOFF RUNNING AT 40 WITH TPN CONTINUOUSLY. AL PATENT AND TO GRAVITY DRAIN. PT REPOSITIONED Q 2 HRS AND NEEDED FOR COMFORT. FAMILY PLAN TO MEET WITH PALLIATIVE CARE RN THIS AM. WILL CONTINUE TO MONITOR UNTIL REPORT GIVEN TO DAYSHIFT RN.
[2020-04-03 06:15] LABS: BAND PERCENT MAN 7 % (0-8); BASOPHILS PERCENT MAN 0 % (0-2); BLASTS PERCENT MAN 1 % (0-0); EOSINOPHILS PERCENT MAN 0 % (0-6); LYMPHOCYTES ABSOLUTE MAN 0.17 K/mm3 (0.84-5.20); LYMPHOCYTES PERCENT MAN 1 % (21-46); METAMYELOCYTE ABSOLUTE MAN 0.35 K/mm3 (0.00-0.00); METAMYELOCYTE PERCENT MAN 2 % (0-0); MONOCYTES ABSOLUTE MAN 1.57 K/mm3 (0.16-1.47); MONOCYTES PERCENT MAN 9 % (4-13); MYELOCYTE ABSOLUTE MAN 0.87 K/mm3 (0.00-0.00); MYELOCYTE PERCENT MAN 5 % (0-0); NEUTROPHILS ABSOLUTE MAN 14.03 K/mm3 (1.96-9.15); PROMYELOCYTE ABSOLUTE MAN 0.35 K/mm3 (0.00-0.00); PROMYELOCYTE PERCENT MAN 2 % (0-0); SEG NEUTROPHILS PERCENT MAN 73 % (41-73); TOTAL CELLS COUNTED 100
--- NOTE | 2020-04-03 08:02 | NUR ---
ASSUMED CARE AT 0700, REPORT FROM TAMMIE. LAYING SUPINE IN BED IN LOW FOWLERS. MOVES ALL FOUR EXTREMETIES, AWAKES TO VERBAL STIMULI, NON VERBAL AT THIS TIME. TPN INFUSING AT 40ML/HR. 0.45% NS INFUSING AT 50ML/HR. AL IN PLACE DRAINING ORANGE COLORED URINE TO GRAVITY. SKIN AND SCLERA JAUNDICE, DOBHOFF IN PLACE, RA AT THIS TIME WITH INCREASED RR OF 38. INTERMITANT TACHYPNIA DURING THE NIGHT PER NIGHT NOC RN. AWAITING FAMILY ATTIVAL AT 0800 FOR CONFERENCE WITH PALLATIVE CARE TO DETERMINE FURTHER COARSE OF TREATMENT. SPOUSE AT BEDSIDE, WILL CONTINUE TO MONITOR.
--- NOTE | 2020-04-03 09:45 | NUR ---
Met with pt's son, Aquilino, dtr, Kahty, and Megan this morning in pt's room. Dr. Clark made rounds during my visit. Pt is currently experiencing multiple system organ failure likely caused by his sepsis. He is a little more alert this morning according to his . He is answering questions with simple one word phrases in between sleeping off and on during the visit. Updated Megan and his children on current condition and treatments. Discussed options for care and code status. Discussed likelihood for continued decline and the possibility of a lengthy recovery and new baseline if he were to somehow survive this event. They would like to speak with Dr. Michael and Dr. Mccoy prior to making any decisions. Pt saw Dr. Mccoy about 2 weeks ago for a bone marrow biopsy and they are interested in receiving those results. Oskar remains very jaundiced and pulls at lines and tubes at times. Gentle oral care done as to not disrupt any blood clots that have formed and cause new bleeding. Answered family's questions. Will await visits from Dr. Michael and Dr. Mccoy and check back in with family to see if they have any questions. Gently urged them that they need to make a decision re: code status and paln of care sooner rather than later. Nursing updated. PC will check in with pt's family around noon.
--- NOTE | 2020-04-03 11:00 | NUR ---
CARDIZEM INCREASED TO 5ML/HR FROM 3ML PER VERBAL ORDERS FROM DR. PINEDA.
--- NOTE | 2020-04-03 12:35 | NUR ---
Present at bedside with nursing when Dr. Mccoy spoke with pt's son and dtr. Pt's had previously stepped out of room and is not present at the bedside at this time. Dr. Mccoy explained bone marrow biopsy results and stated that he cannot find any evidence that pt's current health situation is caused by cancer. Pt's son and dtr will update Megan when she returns and Dr. Mccoy stated that if Megan had more questions that she could call his office and speak with him. Kathy reports that Dr. Michael had visited earlier and told them that he would very likely not recover from this illness. They would like some time to visit together as a family once Megan returns so that they can make a decision. PC will follow up.
[2020-04-03 13:24] LABS: Stool Occult Blood Guaiac 1 Pos (Neg)
--- NOTE | 2020-04-03 14:23 | NUR ---
PALLATIVE CARE RN WITH FAMILY DISCUSSING POSSIBLE COMFORT CARE.
--- NOTE | 2020-04-03 14:45 | NUR ---
Called by nursing to return to room as Oskar's and both children are present. They have chosen to change treatment course to comfort care at this time. Explained comfort care and what that would look like in the hospital. Amswered their questions. Megan is hesitant to take Oskar home on hospice. It is very likely once medications and therapies are withdrawn that Oskar will pass away here in the hospital. Family is asking about a timeline. Explained that it is difficult to predict. Provided emotional support to family. Spoke with Dr. Michael and new comfort care order set ordered. Updated nursing and Rosa M Aguilar who states oringinally pt had orders for discharge. Comfort care cart ordered for family. Provided family with comfort care booklet. PC will continue to follow.
--- NOTE | 2020-04-03 17:25 | NUR ---
Spoke with Bedside RENNY Berkowitz and discussed case. Sho reports family expressing concerns regarding Pt's breathing. Roxanol and Ativan given approximately 1 hour ago. Pt resting in bed with his eyes closed. Respiratory rate increase and work of breathing slighly increase. Family at bedside. Offered family to express concerns and ask questions. Family reports reading book that was given with S/S Pt may experience as normal dying process. Family reports no questions at this time. Spoke with Bedside RENNY Berkowitz and reviewed comfort medications. Sho will offer Roxanol and medication for secretions. Palliative Care will remain avilable.
--- NOTE | 2020-04-03 18:18 | NUR ---
SHIFT SUMMARY; CHANGED TO COMFORT CARE TODAY. FAMILY AT BEDSIDE THROUGHOUT DAY. MEDICATED PER ORDERS FOR COMFORT. TELEMETRY REMOVED, IV FLUIDS DC'D, DOBHOFF REMOVED. AL REMAINS IN PLACE DRAINING ORANGE URINE. REPOSITIONED FOR COMFORT THROUGHOUT DAY NEEDED. ORAL CARE PROVIDED. WILL CONTINUE TO MONITOR AND TREAT UNTIL CHANGE OF SHIFT.
--- NOTE | 2020-04-04 02:30 | NUR ---
UPDATE/TIME OF PT'S TIME OF WAS 0040, VERIFIED WITH RENNY VANN. WAS AT BEDSIDE. GIVEN PRIVACY WITH PT. DECLINED [employer]. PT NOT A CANDIDATE FOR [employer]. GIVEN OPTIONS FOR HOMES AND CHOSE [facility] [place]. LEFT TO HOME. PT WAS CLEANED, IV REMOVED, AL CATHETER REMOVED AND NEW GOWN PLACED ON PT. THE HOME HAS BEEN NOTIFIED.
--- NOTE | 2020-04-04 04:19 | NUR ---
PT TO HOME PT LEFT FACILITY TO [facility] WITH ROVING CARRIER AT 0325. PT HAD NO BELONGINGS AT BEDSIDE OR SENT WITH ROVING CARRIER, BELONGINGS SENT HOME WITH .
[2020-04-04 11:09] LABS: LYME IGG/IGM AB <0.91 ISR (0.00-0.90)
[2020-04-05 00:10] LABS: HBSAG SCREEN Negative (Negative); HEP A AB, IGM Negative (Negative); HEP B CORE AB, IGM Negative (Negative); HEP C VIRUS AB <0.1 (0.0-0.9)
== END 2020-04-04 00:40 | DRG 871 ==
LOC: ER 14:34 → PCU 17:30 → ICUW 17:30 → PCU 03-29 15:05
PROVIDERS: Emergency Medicine; Internal Medicine; Internal Medicine Cardiovascular Disease; Internal Medicine Critical Care Medicine; Pharmacist; Pharmacist Pharmacotherapy; ADMIT Internal Medicine
DX: A41.9 Sepsis, unspecified organism (principal); R65.21 Severe sepsis with septic shock; I50.41 Acute combined systolic (congestive) and diastolic (congestive) heart failure; J69.0 Pneumonitis due to inhalation of food and vomit; J18.9 Pneumonia, unspecified organism; K72.00 Acute and subacute hepatic failure without coma; N17.9 Acute kidney failure, unspecified; I48.92 Unspecified atrial flutter; I13.0 Hypertensive heart and chronic kidney disease with heart failure and stage 1 through stage 4 chronic kidney disease, or unspecified chronic kidney disease; E46 Unspecified protein-calorie malnutrition; N39.0 Urinary tract infection, site not specified; D68.32 Hemorrhagic disorder due to extrinsic circulating anticoagulants; I38 Endocarditis, valve unspecified; G93.40 Encephalopathy, unspecified; Z51.5 Encounter for palliative care; Z20.828 Contact with and (suspected) exposure to other viral communicable diseases; Z85.72 Personal history of non-Hodgkin lymphomas; Z66 Do not resuscitate; Z85.46 Personal history of malignant neoplasm of prostate; N18.3 Chronic kidney disease, stage 3 (moderate); Z87.891 Personal history of nicotine dependence
CPT/HCPCS: 36415; 36430; 51702; 71045; 74176; 76705; 80053; 80069; 80074; 80076; 80202; 81001; 82140; 82248; 82270; 82272; 82330; 82565; 82947; 83605; 83690; 83735; 83880; 84100; 84145; 84484; 85014; 85018; 85025; 85610; 85730; 86141; 86618; 86900; 86901; 87040; 87070; 87086; 87205; 93005; 93010; 93306; 93975; 94660; 94762; 96361-59; 96365-59; 96366-59; 96368; 96375-59; 97110; 97112; 97162; 97167; 97530; 99285-25; A9270-GY; C9113; G0480; J0692; J0696; J1650; J1940; J2060; J2405; J2543; J3370; J7030; J7040; J7050; J7060; J7120; P9046; P9059; U0002